=== PATIENT | male | born 1975 | race Hispanic/Latino ===

== ENCOUNTER 2019-03-31 13:43 | Observation (INO) ==
[2019-03-31] MEDS ORDERED: Sodium Chloride 0.9% 1,000 ML PRIMARY IV ONE (13:54)
--- NOTE | 2019-03-31 13:57 | EKG ---
[address] [place] [id number] Test Date: 2019-03-31 Pat Name: MONIKA FAY Department: ER Room: 316 Gender: M Supervisor Inspection: BERNARD : 1975 Requested By: GILBERT ROBIN Order Number: [id number] Reading MD: Luis Carlos Holm Measurements Intervals Marshall Rate: 72 P: 19 KS: 133 QRS: 21 QRSD: 112 T: 64 QT: 395 QTc: 434 Interpretive Statements SINUS RHYTHM MODERATE INTRAVENTRICULAR CONDUCTION DELAY No previous ECG available for comparison Electronically Signed On 03-31-2019 18:56:57 MDT by Luis Carlos Holm [id number]
[2019-03-31] MEDS: NITROGLYCERIN 0.4 MG SL TAB (BOTTLE OF 3) SL PRN ×2 (13:58→14:26)
[2019-03-31 14:01] LABS: BASOPHILS # (AUTO) 0.03 10*3/UL; BASOPHILS % (AUTO) 0.5 % (0-1); EOSINOPHILS # (AUTO) 0.03 10*3/UL; EOSINOPHILS % (AUTO) 0.5 % (0-8); Hematocrit [HCT] 43.7 % (42.0-52.0); Hemoglobin [HGB] 14.4 g/dL (14.0-18.0); LYMPHOCYTES # (AUTO) 1.02 10*3/uL; MEAN CORPUSCULAR VOLUME 90.9 FL (80-90); MEAN PLATELET VOLUME 10.8 FL (7.4-12.2); MONOCYTES # (AUTO) 0.38 10*3/UL (0.3-0.8); MONOCYTES % (AUTO) 6.6 % (5-15); NEUTROPHILS # (AUTO) 4.34 10*3/UL; NEUTROPHILS % (AUTO) 74.8 % (50-80); PLATELET MORPHOLOGY COMMENT NORMAL MORPHOLOGY (NORM); RBC MORPHOLOGY COMMENT NORMAL MORPHOLOGY (NORM); RED BLOOD COUNT 4.81 10^6/uL (4.70-6.10); WBC MORPHOLOGY COMMENT NORMAL MORPHOLOGY (NORM)
[2019-03-31 14:14] LABS: BLOOD UREA NITROGEN 15 mg/dL (7-22); BUN/CREATININE RATIO 16.66 (6-20); SERUM ALBUMIN 4.5 g/dL (3.5-4.8)
--- NOTE | 2019-03-31 14:28 | DI ---
XR CXR 1VW,03/31/2019 2:07 PM: Clinical History: Chest pain Previous Exam: None at this facility. Findings: A single frontal radiograph of the chest is obtained, and demonstrates clear lungs. The cardiomediast inum and bony thorax are unremarkable. Overlying EKG leads are seen. Impression: No acute cardiopulmonary disease.
--- NOTE | 2019-03-31 14:31 | PDOC ---
Chest Pain HPI - General Chief Complaint: Chest Pain Stated Complaint: chest pain Date Seen by Provider: 03/31/19 Time Seen by Provider: 13:45 Source: Patient Exam Limitations: POSITIVE: No limitations Treatment Prior to Arrival: REPORTS: Nitroglycerin (1 dose of sublingual nitroglycerin in route per EMS), Aspirin (325 mg administered per prison nurse) Nurse's Notes Reviewed & Considered: Yes EMS Report Reviewed & Considered: Verbal - History of Present Illness Initial Comments: The patient is a 43-year-old male who presents to the emergency department by ambulance with complaints of chest pain. The patient was apparently just arrested for domestic violence and was in the process of being checked in at the prison when he had onset of pain in his mid chest. The nurse at the prison did administer 325 mg of aspirin. When EMS arrived a 12-lead EKG showed no obvious ST elevation or depression. He was hypertensive initially with a blood pressure in the 190s over 110s. He received 1 dose of sublingual nitroglycerin in route. The patient states that he thinks this might have helped slightly however he still has continued pain. The pain is located primarily in the center of his chest and radiates down his left arm. The pain is worsened when he takes a deep breath and is sharp. He does not have any known history of heart disease. He has several grandparents with heart conditions. He does chew tobacco. He takes medication for high blood pressure as well as anxiety. He states that he is borderline diabetic. He reports that he has had anxiety and panic attacks in the past and states that his current pain is not like pain he has experienced from that in the past. He denies illicit drug use. He does admit to drinking several beers on most days, sometimes more. - Patient Home Medications Home Medications: Home Medications Metoprolol Succinate 50 mg PO DAILY 01/02/18 escitalopram 20 mg tablet 20 mg PO QDAY 01/15/18 lamotrigine 25 mg tablet 50 mg PO QDAY tab 01/15/18 Amlodipine Besylate [Norvasc] 10 mg PO DAILY #30 tab 03/31/19 Atorvastatin Calcium [Lipitor] 40 mg PO BEDTIME #30 tab 03/31/19 Lorazepam [Ativan] 0.5 mg PO BID PRN #10 tab 03/31/19 - Patient Allergies Allergies/Adverse Reactions: Allergies Allergy/AdvReac Type Severity Reaction Status Date / Time kiwi Allergy ITCHING Verified 03/31/19 13:51 nut - unspecified Allergy ITCHING Verified 03/31/19 13:51 ibuprofen AdvReac Nausea and Verified 03/31/19 15:21 Vomiting Past Medical History - heen HEENT History: Denies History Cardiovascular History: Hypertension Respiratory History: Denies History Gastrointestinal History: Denies History Genitourinary History: Denies History Endocrine History: Hypothyroidism Musculoskeletal History: Back Pain Prosthesis or Implant: No Neurological History: Denies History Blood Disorders: Denies History Psychiatric History: Depression, Anxiety Disorders History of Sexually Transmitted Diseases: No Cancer History: Denies History In Past Year Been Physically Harmed or Verbally Threatened: No History of MDRO: No History of Other Communicable Diseases: No Tobacco Use: Never Smoker Type of alcohol normally used: Beer In the Past 12 Months, Have Used or Abuse Any Substance: None Previous Surgical History: Yes Type / Date of Surgery: oral Significant Family History: No pertinent family hx Past Medical History Reviewed: Reviewed - No Changes ROS - Limitations ROS Limitations: No Limitations Constitution: DENIES: Fever Cardiovascular: REPORTS: Chest Pain, Edema (Report some intermittent edema in his ankles recently). DENIES: Heart Palpitations Respiratory: REPORTS: Hurts To Breathe. DENIES: Cough Non Productive Neurological: REPORTS: Denies Neuro Symptoms Gastrointestinal: REPORTS: Denies GI Symptoms Eyes: REPORTS: Denies Symptoms ENT: REPORTS: Denies Symptoms Chest Pain PE - General Appearance General Appearance: REPORTS: Alert, Cooperative, No Acute Distress, Anxious - HEENT HEENT: POSITIVE: Head Inspection Nml, Eyes Inspection Nml, Ears Inspection Nml, Nose Inspection Nml, Pharynx Inspect. Nml - Neck Neck: REPORTS: Normal Inspection. DENIES: JVD Present - Respiratory Respiratory: REPORTS: No Respiratory Distress, Breath Sounds Normal, Other (He does have tenderness to the left mid and upper chest) - Cardiovascular Cardiovascular: REPORTS: Regular Rate and Rhythm, Heart Sounds Normal Peripheral Pulses: Radial (R): 2+, Radial (L): 2+, Dorsalis-pedis (R): 2+, Dorsalis-pedis (L): 2+ - Abdomen Abdomen: Soft: (All Quadrants), Denies Tenderness: (All Quadrants), No Distent ion: (All Quadrants) - Skin Skin: REPORTS: Intact, No Rash - Extremities Extremity: Normal ROM: (All Extremities), Normal Inspection: (All Extremities) - Neurological / Psychological Neurological: POSITIVE: Oriented X3, financial administrator Normal As Tested, Motor Normal, Sensation Normal Chest Pain Progress - Results Reviewed by me Xrays/CTs/US Reviewed by me: Yes Radiology Findings: Chest x-ray shows normal heart size and normal lung elmore. Lab Results Reviewed by Me: Yes CBC and BMP: 03/31/19 13:36 03/31/19 13:36 Lab Results:: Laboratory Results 03/31/19 03/31/19 03/31/19 13:36 13:36 13:36 WBC 5.80 RBC 4.81 Hgb 14.4 Hct 43.7 MCV 90.9 H MCH 29.9 MCHC 33.0 RDW Std Deviation 47.6 RDW Coeff of Arabella 14.5 Plt Count 219 MPV 10.8 Immature Gran % (Auto) 0 Neut % (Auto) 74.8 Lymph % (Auto) 17.6 Hart % (Auto) 6.6 Eos % (Auto) 0.5 Baso % (Auto) 0.5 Immature Gran # (Auto) 0 Neut # (Auto) 4.34 Lymph # (Auto) 1.02 Hart # (Auto) 0.38 Eos # (Auto) 0.03 Baso # (Auto) 0.03 WBC Morphology Comment Normal morphology Plt Morphology Comment Normal morphology RBC Morph Comment Normal morphology D-Dimer 219 Sodium 147 H Potassium 3.8 Chloride 111 Carbon Dioxide 23 Anion Gap 13 BUN 15 Creatinine 0.9 Estimated GFR > 60 BUN/Creatinine Ratio 16.66 Glucose 108 Calculated Osmolality 305.0 H Calcium 9.7 Magnesium 2.0 Total Bilirubin 0.3 AST 30 ALT 40 Alkaline Phosphatase 81 CK-MB (CK-2) Troponin I Handheld Troponin I C-Reactive Protein < 0.5 NT-Pro-B Natriuret Pep 54.2 Total Protein 7.5 Albumin 4.5 Globulin 3.0 Albumin/Globulin Ratio 1.50 Triglycerides Cholesterol LDL Cholesterol, Calc VLDL Cholesterol HDL Cholesterol Cholesterol/HDL Ratio Amylase 73 Lipase 60 TSH Free T4 Ur Collection Type U Specif Grav (Refrac) Urine Opiates Screen Ur Buprenorphine Ur Oxycodone Screen Urine Methadone Screen Ur Propoxyphene Screen Barbiturate Screen U Tricyclic Antidepress Phencyclidine Screen Amphetamines Screen U Methamphetamines Scrn Benzodiazepines Screen Cocaine Screen U Marijuana (THC) Screen Serum Alcohol 03/31/19 03/31/19 03/31/19 13:36 13:36 13:37 WBC RBC Hgb Hct MCV MCH MCHC RDW Std Deviation RDW Coeff of Arabella Plt Count MPV Immature Gran % (Auto) Neut % (Auto) Lymph % (Auto) Hart % (Auto) Eos % (Auto) Baso % (Auto) Immature Gran # (Auto) Neut # (Auto) Lymph # (Auto) Hart # (Auto) Eos # (Auto) Baso # (Auto) WBC Morphology Comment Plt Morphology Comment RBC Morph Comment D-Dimer Sodium Potassium Chloride Carbon Dioxide Anion Gap BUN Creatinine Estimated GFR BUN/Creatinine Ratio Glucose Calculated Osmolality Calcium Magnesium Total Bilirubin AST ALT Alkaline Phosphatase CK-MB (CK-2) 0.41 Troponin I Handheld Troponin I < 0.012 C-Reactive Protein NT-Pro-B Natriuret Pep Total Protein Albumin Globulin Albumin/Globulin Ratio Triglycerides 402 H Cholesterol 278 H LDL Cholesterol, Calc 151.600 VLDL Cholesterol 80 H HDL Cholesterol 46 Cholesterol/HDL Ratio 6.04 H Amylase Lipase TSH Free T4 Ur Collection Type U Specif Grav (Refrac) Urine Opiates Screen Ur Buprenorphine Ur Oxycodone Screen Urine Methadone Screen Ur Propoxyphene Screen Barbiturate Screen U Tricyclic Antidepress Phencyclidine Screen Amphetamines Screen U Methamphetamines Scrn Benzodiazepines Screen Cocaine Screen U Marijuana (THC) Screen Serum Alcohol 03/31/19 03/31/19 03/31/19 13:37 13:55 14:30 WBC RBC Hgb Hct MCV MCH MCHC RDW Std Deviation RDW Coeff of Arabella Plt Count MPV Immature Gran % (Auto) Neut % (Auto) Lymph % (Auto) Hart % (Auto) Eos % (Auto) Baso % (Auto) Immature Gran # (Auto) Neut # (Auto) Lymph # (Auto) Hart # (Auto) Eos # (Auto) Baso # (Auto) WBC Morphology Comment Plt Morphology Comment RBC Morph Comment D-Dimer Sodium Potassium Chloride Carbon Dioxide Anion Gap BUN Creatinine Estimated GFR BUN/Creatinine Ratio Glucose Calculated Osmolality Calcium Magnesium Total Bilirubin AST ALT Alkaline Phosphatase CK-MB (CK-2) Troponin I Handheld Troponin I C-Reactive Protein NT-Pro-B Natriuret Pep Total Protein Albumin Globulin Albumin/Globulin Ratio Triglycerides Cholesterol LDL Cholesterol, Calc VLDL Cholesterol HDL Cholesterol Cholesterol/HDL Ratio Amylase Lipase TSH 2.69 Free T4 1.02 Ur Collection Type Clean catch urine U Specif Grav (Refrac) 1.023 Urine Opiates Screen Negative Ur Buprenorphine Positive H Ur Oxycodone Screen Negative Urine Methadone Screen Negative Ur Propoxyphene Screen Negative Barbiturate Screen Negative U Tricyclic Antidepress Negative Phencyclidine Screen Negative Amphetamines Screen Negative U Methamphetamines Scrn Negative Benzodiazepines Screen Negative Cocaine Screen Negative U Marijuana (THC) Screen Positive H Serum Alcohol < 10 03/31/19 15:53 WBC RBC Hgb Hct MCV MCH MCHC RDW Std Deviation RDW Coeff of Arabella Plt Count MPV Immature Gran % (Auto) Neut % (Auto) Lymph % (Auto) Hart % (Auto) Eos % (Auto) Baso % (Auto) Immature Gran # (Auto) Neut # (Auto) Lymph # (Auto) Hart # (Auto) Eos # (Auto) Baso # (Auto) WBC Morphology Comment Plt Morphology Comment RBC Morph Comment D-Dimer Sodium Potassium Chloride Carbon Dioxide Anion Gap BUN Creatinine Estimated GFR BUN/Creatinine Ratio Glucose Calculated Osmolality Calcium Magnesium Total Bilirubin AST ALT Alkaline Phosphatase CK-MB (CK-2) Troponin I Handheld 0.000 Troponin I C-Reactive Protein NT-Pro-B Natriuret Pep Total Protein Albumin Globulin Albumin/Globulin Ratio Triglycerides Cholesterol LDL Cholesterol, Calc VLDL Cholesterol HDL Cholesterol Cholesterol/HDL Ratio Amylase Lipase TSH Free T4 Ur Collection Type U Specif Grav (Refrac) Urine Opiates Screen Ur Buprenorphine Ur Oxycodone Screen Urine Methadone Screen Ur Propoxyphene Screen Barbiturate Screen U Tricyclic Antidepress Phencyclidine Screen Amphetamines Screen U Methamphetamines Scrn Benzodiazepines Screen Cocaine Screen U Marijuana (THC) Screen Serum Alcohol EKG Interpreted/Reviewed By Me:: Yes EKG Interpretation:: POSITIVE: Normal Sinus Rhythm, Normal Rate, Normal QRS, Normal ST/T - Patient's Progress MDM / ED Course: On arrival here in the emergency department the patient still reports severe chest pain. His EKG shows normal sinus rhythm with no acute ST segment or T- wave changes. He does have pain with palpation as well as with taking a deep breath. He had already received aspirin and one dose of nitroglycerin prior to coming to the emergency department. His vital signs were unremarkable with the exception of his blood pressure still being elevated at 177/114. He did receive 2 more doses of sublingual nitroglycerin. His pressure did come down. Initial blood work reveals a normal d-dimer, normal troponin. His chest x-ray shows normal heart size and normal lung elmore. Repeat troponin was also negative. The patient was having continued pain. His blood pressure also continued to be elevated. He did receive Ativan 1 mg IV. His blood pressure did come down into the 150s over 90s. The patient is discussed with Dr. Hanna. Decision was made to admit the patient for exercise stress testing and CTA of the chest for further evaluation. These recommendations were discussed with the patient and he is in agreement with this plan. - Consult Counseled: POSITIVE: Patient, RE: Lab Results, RE: Radiology Results, RE: DX, RE: Need for F/U Patient Care Time - Estimated PCT Patient Care Time (In Minutes): 45 Vital Signs - VS Reviewed Vital Signs Reviewed: Yes Discharge Clinical Impression: Chest pain Hypertension Qualifiers: Hypertension type: essential hypertension Qualified Code(s): I10 - Essential (primary) hypertension Discharge Disposition: Admit to Observation Condition: Fair Patient Problem(s) Reviewed: Yes
[2019-03-31] MEDS ORDERED: KETOROLAC 15 MG/1 ML VIAL IVP ONE (14:35)
[2019-03-31] MEDS ORDERED: LORazepam 2 MG/1 ML VIAL IVP ONE (15:58)
[2019-03-31 17:10] LABS: AMPHETAMINE SCREEN NEGATIVE (NEG); OPIATE SCREEN,URINE NEGATIVE (NEG); URINE SAMPLE TYPE CLEAN CATCH URINE; URINE SPECIFIC GRAVITY - MAN 1.023
[2019-03-31 17:11] LABS: CANNABINOID SCREEN,URINE POSITIVE (NEG); COCAINE SCREEN NEGATIVE (NEG); METHADONE URINE SCREEN NEGATIVE (NEG); METHAMPHETAMINES SCREEN,URINE NEGATIVE (NEG)
--- NOTE | 2019-03-31 17:44 | DI ---
CT CTA Chest Non-Coronary O,03/31/2019 5:00 PM: Clinical History: Chest pain Previous Exam: None at this facility. Findings: Multiple helically acquired CT images are obtained through the chest following intravenous administra tion of 69 mL of Omnipaque 300, and demonstrate normal thyroid. The aorta is unremarkable. Pulmonary arteries are normal without filling defect or truncation to sugg est pulmonary embolism. There is mild subsegmental atelectasis in the lung bases. The liver, gallbladder, spleen, pancreas and adrenals are unremarkable. There is no infiltrate nor effusion. Skeletal structures are unremarkable. Impression: 1. No evidence of pulmonary embolism. 2. No acute cardiopulmonary disease.
[2019-03-31 17:48] LABS: CHOL/HDL RATIO 6.04 RATIO (0-4.0)
--- NOTE | 2019-03-31 18:10 | STRESSTEST ---
[place] [address] [place] [address] Test Date: 2019-03-31 Pat Name: MONIKA FAY Department: MED/SURG Room: 316 Gender: Male Clinical Cytogenetics Director: Luis : 1975 Requested By: MAYA PEREZ Order Number: [id number] Reading MD: Cyndi Interpretive Statements This is a 43 YO male that presented to the emergency room after being arrested earlier today with sudden onset chest pain and radiation into left arm. Has panic attacks, grandparents with history of heart disease, chews tobacco, HTN, pre-diabetes, and he thinks he has high cholesterol. resting EKG is NSR. Exercised in Ernie protocol to time of 10:!4, reached 89% predicted heart rate. 11 METs. Hypertensive response to exercise. No ischemic findings. Impression: negative maximal stress test with double product 28,080. hypertensive response to exercise. lower pretest probability. [email or web address]
[2019-03-31 18:14] VITALS: RESP 20; O2SAT 95
--- NOTE | 2019-03-31 18:23 | PDOC ---
HPI - History of Present Illness Date of Service: 03/31/19 Time of Service: 18:16 Chief Complaint: chest pain History of Present Illness: This is a 43 YO male with bipolar disorder II, hypertension, and chronic back pain who presents here with chest pain after being arrested. The patient states he got into his jump suit after being arrested from something and the chest pain started on the left side, and he described it as sharp. He felt short of breath. The pain radiated to his arm. He was hypertensive in the ER, and tells me that his SBP measures 130's-150's at the grocery store when he checks it there on occasion. He states he has had panic attacks in the past but he notes this episode doesn't feel like prior panic attacks as they were not associated with chest pain. The patient had a negative troponin in the ER. He has hype rtension, no primary family history of heart disease (grandparents had heart attacks, apparently), he states he was pre-diabetic (normal glucose in ER), he thinks he has high cholesterol but doesn't know for sure, and he chews tobacco. His drug screen was positive for marijuana. No other exacerbating factors. Past Medical History Medical History: 1. HTN. 2. bipolar, type II. 3. chronic back pain. 4. marijuana use. 5. alcohol use Surgical History: 1. wisdom teeth extraction Pertinent Family History: states his grandparents had heart attacks Past Social History: chews tobacco, drinks alcohol daily, smokes marijuana, has fiancee, two healthy children, works in [employer] [place]. arrested today. Tobacco Use: Never Smoker Do you dip or chew tobacco: Yes In the Past 12 Months, Have Used or Abuse Any of the Following Substance: Marijuana, Opiate Pain Medication (buprenorphine) Alcohol Use: Heavy Medication / Allergies Home Medications: Home Medications Medication Instructions Recorded Confirmed Acetaminophen [Tylenol] 1,500 mg PO PRN 01/02/18 03/31/19 Metoprolol Succinate 50 mg PO DAILY 01/02/18 03/31/19 buprenorphine HCl 2 mg sublingual 2 mg SL ONCE 01/15/18 03/31/19 tablet escitalopram 20 mg tablet 20 mg PO QDAY 01/15/18 03/31/19 lamotrigine 25 mg tablet 50 mg PO QDAY tab 01/15/18 03/31/19 Allergies/Adverse Reactions: Allergies Allergy/AdvReac Type Severity Reaction Status Date / Time kiwi Allergy ITCHING Verified 03/31/19 13:51 nut - unspecified Allergy ITCHING Verified 03/31/19 13:51 ibuprofen AdvReac Nausea and Verified 03/31/19 15:21 Vomiting Review of Systems - Respiratory Respiratory: REPORTS: Negative System Review - Cardiovascular Cardiovascular: REPORTS: Chest Pain - Gastrointestinal Gastrointestinal / Abdominal: REPORTS: Nausea - Genitourinary Genitourinary: REPORTS: Negative System Review - Musculoskeletal Musculoskeletal: REPORTS: Other (non specific joint pains.) - Neurological Neurologic: REPORTS: Negative System Review - Psychiatric Psychiatric: REPORTS: Other (bipolar) Exam - Vitals Vital Signs: Vital Signs Temperature 98.3 F Temperature Source Oral Pulse Rate [Pulse Oximeter 79 Right] Pulse Rate 78 Respiratory Rate 20 Blood Pressure [Right Arm] 173/114 Blood Pressure [Left Arm] 177/114 Blood Pressure 185/101 Pulse Ox 95 Oxygen Delivery Method Room Air Height 5 ft 8 in Weight 209 lb - General General Appearance: No Acute Distress, Cooperative - Head Head Exam: Normal Inspection, Normocephalic, Atraumatic - Eye Eye Exam: POSITIVE: No Scleral Icterus - ENT ENT Exam: POSITIVE: Mucous Membranes Moist - Neck Neck Exam: Normal Inspection, No Tenderness, No Lymphadenopathy, No Thyromegaly, JVP is not Raised - Respiratory Respiratory Exam: POSITIVE: Clear to Auscultation - Bilaterally, Breathing Non Labored - Cardiovascular Cardiovascular Exam: POSITIVE: RRR, No Murmur, No Clicks, No Gallops, No Rubs, No JVD - GI/Abdominal GI/Abdominal Exam: POSITIVE: Normal Bowel Sounds, Non Tender, Non Distended, Soft - Rectal Rectal Exam: POSITIVE: Deferred - External Exam: POSITIVE: Deferred Exam: POSITIVE: Deferred - Extremities Extremities Exam: POSITIVE: No Clubbing Present, No Edema Present, No Cyanosis Present - Neurological Neurological Exam: POSITIVE: Alert, Oriented x 3, No Facial Droop, Speech Intact / Clear, Moves All Extremities Equally - Psychiatric Psychiatric Exam: POSITIVE: Anxious Results - Labs CBC and BMP: 03/31/19 13:36 03/31/19 13:36 Additional Lab Results: Laboratory Results 03/31/19 03/31/19 03/31/19 13:36 13:36 13:36 WBC 5.80 RBC 4.81 Hgb 14.4 Hct 43.7 MCV 90.9 H MCH 29.9 MCHC 33.0 RDW Std Deviation 47.6 RDW Coeff of Arabella 14.5 Plt Count 219 MPV 10.8 Immature Gran % (Auto) 0 Neut % (Auto) 74.8 Lymph % (Auto) 17.6 [place] % (Auto) 6.6 Eos % (Auto) 0.5 Baso % (Auto) 0.5 Immature Gran # (Auto) 0 Neut # (Auto) 4.34 Lymph # (Auto) 1.02 [place] # (Auto) 0.38 Eos # (Auto) 0.03 Baso # (Auto) 0.03 WBC Morphology Comment Normal morphology Plt Morphology Comment Normal morphology RBC Morph Comment Normal morphology D-Dimer 219 Sodium 147 H Potassium 3.8 Chloride 111 Carbon Dioxide 23 Anion Gap 13 BUN 15 Creatinine 0.9 Estimated GFR > 60 BUN/Creatinine Ratio 16.66 Glucose 108 Calculated Osmolality 305.0 H Calcium 9.7 Magnesium 2.0 Total Bilirubin 0.3 AST 30 ALT 40 Alkaline Phosphatase 81 CK-MB (CK-2) Troponin I Handheld Troponin I C-Reactive Protein < 0.5 NT-Pro-B Natriuret Pep 54.2 Total Protein 7.5 Albumin 4.5 Globulin 3.0 Albumin/Globulin Ratio 1.50 Triglycerides Cholesterol LDL Cholesterol, Calc VLDL Cholesterol HDL Cholesterol Cholesterol/HDL Ratio Amylase 73 Lipase 60 TSH Free T4 Ur Collection Type U Specif Grav (Refrac) Urine Opiates Screen Ur Buprenorphine Ur Oxycodone Screen Urine Methadone Screen Ur Propoxyphene Screen Barbiturate Screen U Tricyclic Antidepress Phencyclidine Screen Amphetamines Screen U Methamphetamines Scrn Benzodiazepines Screen Cocaine Screen U Marijuana (THC) Screen Serum Alcohol 03/31/19 03/31/19 03/31/19 13:36 13:36 13:37 WBC RBC Hgb Hct MCV MCH MCHC RDW Std Deviation RDW Coeff of Arabella Plt Count MPV Immature Gran % (Auto) Neut % (Auto) Lymph % (Auto) [place] % (Auto) Eos % (Auto) Baso % (Auto) Immature Gran # (Auto) Neut # (Auto) Lymph # (Auto) [place] # (Auto) Eos # (Auto) Baso # (Auto) WBC Morphology Comment Plt Morphology Comment RBC Morph Comment D-Dimer Sodium Potassium Chloride Carbon Dioxide Anion Gap BUN Creatinine Estimated GFR BUN/Creatinine Ratio Glucose Calculated Osmolality Calcium Magnesium Total Bilirubin AST ALT Alkaline Phosphatase CK-MB (CK-2) 0.41 Troponin I Handheld Troponin I < 0.012 C-Reactive Protein NT-Pro-B Natriuret Pep Total Protein Albumin Globulin Albumin/Globulin Ratio Triglycerides 402 H Cholesterol 278 H LDL Cholesterol, Calc 151.600 VLDL Cholesterol 80 H HDL Cholesterol 46 Cholesterol/HDL Ratio 6.04 H Amylase Lipase TSH Free T4 Ur Collection Type U Specif Grav (Refrac) Urine Opiates Screen Ur Buprenorphine Ur Oxycodone Screen Urine Methadone Screen Ur Propoxyphene Screen Barbiturate Screen U Tricyclic Antidepress Phencyclidine Screen Amphetamines Screen U Methamphetamines Scrn Benzodiazepines Screen Cocaine Screen U Marijuana (THC) Screen Serum Alcohol 03/31/19 03/31/19 03/31/19 13:37 13:55 14:30 WBC RBC Hgb Hct MCV MCH MCHC RDW Std Deviation RDW Coeff of Arabella Plt Count MPV Immature Gran % (Auto) Neut % (Auto) Lymph % (Auto) [place] % (Auto) Eos % (Auto) Baso % (Auto) Immature Gran # (Auto) Neut # (Auto) Lymph # (Auto) [place] # (Auto) Eos # (Auto) Baso # (Auto) WBC Morphology Comment Plt Morphology Comment RBC Morph Comment D-Dimer Sodium Potassium Chloride Carbon Dioxide Anion Gap BUN Creatinine Estimated GFR BUN/Creatinine Ratio Glucose Calculated Osmolality Calcium Magnesium Total Bilirubin AST ALT Alkaline Phosphatase CK-MB (CK-2) Troponin I Handheld Troponin I C-Reactive Protein NT-Pro-B Natriuret Pep Total Protein Albumin Globulin Albumin/Globulin Ratio Triglycerides Cholesterol LDL Cholesterol, Calc VLDL Cholesterol HDL Cholesterol Cholesterol/HDL Ratio Amylase Lipase TSH 2.69 Free T4 1.02 Ur Collection Type Clean catch urine U Specif Grav (Refrac) 1.023 Urine Opiates Screen Negative Ur Buprenorphine Positive H Ur Oxycodone Screen Negative Urine Methadone Screen Negative Ur Propoxyphene Screen Negative Barbiturate Screen Negative U Tricyclic Antidepress Negative Phencyclidine Screen Negative Amphetamines Screen Negative U Methamphetamines Scrn Negative Benzodiazepines Screen Negative Cocaine Screen Negative U Marijuana (THC) Screen Positive H Serum Alcohol < 10 03/31/19 15:53 WBC RBC Hgb Hct MCV MCH MCHC RDW Std Deviation RDW Coeff of Arabella Plt Count MPV Immature Gran % (Auto) Neut % (Auto) Lymph % (Auto) [place] % (Auto) Eos % (Auto) Baso % (Auto) Immature Gran # (Auto) Neut # (Auto) Lymph # (Auto) [place] # (Auto) Eos # (Auto) Baso # (Auto) WBC Morphology Comment Plt Morphology Comment RBC Morph Comment D-Dimer Sodium Potassium Chloride Carbon Dioxide Anion Gap BUN Creatinine Estimated GFR BUN/Creatinine Ratio Glucose Calculated Osmolality Calcium Magnesium Total Bilirubin AST ALT Alkaline Phosphatase CK-MB (CK-2) Troponin I Handheld 0.000 Troponin I C-Reactive Protein NT-Pro-B Natriuret Pep Total Protein Albumin Globulin Albumin/Globulin Ratio Triglycerides Cholesterol LDL Cholesterol, Calc VLDL Cholesterol HDL Cholesterol Cholesterol/HDL Ratio Amylase Lipase TSH Free T4 Ur Collection Type U Specif Grav (Refrac) Urine Opiates Screen Ur Buprenorphine Ur Oxycodone Screen Urine Methadone Screen Ur Propoxyphene Screen Barbiturate Screen U Tricyclic Antidepress Phencyclidine Screen Amphetamines Screen U Methamphetamines Scrn Benzodiazepines Screen Cocaine Screen U Marijuana (THC) Screen Serum Alcohol - EKG Data -: EKG Interpreted by Me Rate: Normal EKG Shows Normal: Sinus Rhythm - Imaging Status: Image Reviewed by Me (chest x-ray on my view is negative, CT scan is negative for pneumonia, radiologist read as negative for PE) Assessment and Plan - Patient Problems (1) Chest pain Current Visit: Yes Status: Acute Code(s): R07.9 - Chest pain, unspecified (2) Panic attack Current Visit: Yes Status: Acute Code(s): F41.0 - Panic disorder [episodic paroxysmal anxiety] (3) Marijuana abuse Current Visit: Yes Status: Acute Code(s): F12.10 - Cannabis abuse, uncomplicated (4) Alcohol use Current Visit: Yes Status: Acute Code(s): Z72.89 - Other problems related to lifestyle (5) Hypertension Current Visit: Yes Status: Acute Code(s): I10 - Essential (primary) hypertension Qualifiers: Hypertension type: essential hypertension Qualified Code(s): I10 - Essential (primary) hypertension (6) Chronic back pain Current Visit: Yes Status: Acute Code(s): M54.9 - Dorsalgia, unspecified; G89.29 - Other chronic pain Qualifiers: Back pain location: low back pain Back pain laterality: unspecified Sciatica presence: unspecified whether sciatica present Qualified Code(s): M54.5 - Low back pain; G89.29 - Other chronic pain - Assessment / Plan Additional Assessment/Plan Details: admit for observation arrange for exercise treadmill stress test for risk stratification check thyroid function, and cholesterol function clonidine for elevated BP and start norvasc if stress test is negative, then consider discharge overall, most suspicious of a panic attack
[2019-03-31] MEDS ORDERED: CloNIDine Tab 0.1 MG TABLET PO ONE (18:24)
[2019-03-31] MEDS ORDERED: lamoTRIgine 100 MG TABLET PO SCH (18:30)
[2019-03-31] MEDS ORDERED: ESCITALOPRAM 10 MG TABLET PO SCH (18:30)
[2019-03-31] MEDS ORDERED: ATORVASTATIN 40 MG TABLET PO ONE (18:54)
--- NOTE | 2019-03-31 20:15 | DCSUMMARY ---
Hospitalization Summary Admit Date: 03/31/2019 Discharge Date: 03/31/19 Primary Diagnosis:: chest pain, secondary to panic attack Hospital Course: This is a pleasant 43-year-old male who was arrested earlier today. See history and physical exam dictated earlier for details, in short, patient had 2 negative cardiac enzymes, a treadmill stress test that was a negative maximal stress test with hypertensive response, he was found to have high cholesterol. His blood pr essures under better control now with a systolic around 169 which represents a 10-20% reduction from blood pressures in the emergency room and I believe the patient can resume outpatient monitoring with additional blood pressure medications. Have written for Norvasc in addition to his metoprolol that he takes at home. The patient had a negative CT scan for pulmonary embolism. He is on a mood stabilizer as well as an antidepressant for his bipolar disorder. For his panic attacks, I'll also write for when necessary Ativan. Hopefully any adjustments made in antidepressants per his psychiatrist may help with anxiety as well. This is not a long-term solution for his panic attacks. I have asked that the patient's buprenorphine does be confirmed tomorrow with [facility] as it is not prescribed by anybody here. The patient currently is not in any distress. He has no active complaints. Assessment and Plan: 1. As per discharge assessments noted 2. Disposition: Patient is discharged to the custody of law enforcement 3. Condition on discharge, stable and improved. 4. Diet: regular diet, although I did recommend low-fat and low-cholesterol 5. Activities: As per law enforcement 6. Follow-Up: 1. I recommend follow-up with primary care physician or provider within 7- 10 days of discharge 7. Medications at the Time of Discharge: Home Medications Medication Instructions Recorded Confirmed Metoprolol Succinate 50 mg PO DAILY 01/02/18 03/31/19 escitalopram 20 mg tablet 20 mg PO QDAY 01/15/18 03/31/19 lamotrigine 25 mg tablet 50 mg PO QDAY tab 01/15/18 03/31/19 Amlodipine Besylate [Norvasc] 10 mg PO DAILY #30 tab 03/31/19 Atorvastatin Calcium [Lipitor] 40 mg PO BEDTIME #30 tab 03/31/19 Lorazepam [Ativan] 0.5 mg PO BID PRN #10 tab 09/11/19 The patient is on buprenorphine and I would recommend that that dose be confirmed tomorrow and in addition we have records that show the patient is on Lexapro, but he could possibly be on Celexa and that should be confirmed as well. Same day admission and discharge This report was transcribed using [employer] voice recognition. Despite editing, there may be grammatical and/or typographical errors in this spinner open end report due to the limitations inherent with voice activated and speech recognition software. Exam - Vitals Vital Signs: Vital Signs Vital Signs - Last Taken Temperature 98.3 F 03/31/19 18:11 Pulse Rate 79 03/31/19 18:11 Respiratory Rate 20 03/31/19 18:11 Blood Pressure 173/114 03/31/19 18:11 Pulse Ox 95 03/31/19 18:11 I confirmed with the patient's nurse and nurse acting as a [employer] tonight that his last systolic blood pressure was 169. Height 5 ft 8 in Weight 209 lb Please see history and physical exam for details of further examination. - General General Appearance: No Acute Distress, Cooperative - Head Head Exam: Normal Inspection, Normocephalic, Atraumatic - Eye Eye Exam: POSITIVE: No Scleral Icterus - ENT ENT Exam: POSITIVE: Mucous Membranes Moist - Neck Neck Exam: JVP is not Raised - Neurological Neurological Exam: POSITIVE: Alert, Oriented x 3, No Facial Droop, Speech Intact / Clear, Moves All Extremities Equally - Psychiatric Additional Psychiatric Exam Details: Patient is less anxious than he was earlier today. Data Peritnent Studies: Laboratory Results 03/31/19 03/31/19 03/31/19 13:36 13:36 13:36 WBC 5.80 RBC 4.81 Hgb 14.4 Hct 43.7 MCV 90.9 H MCH 29.9 MCHC 33.0 RDW Std Deviation 47.6 RDW Coeff of Arabella 14.5 Plt Count 219 MPV 10.8 Immature Gran % (Auto) 0 Neut % (Auto) 74.8 Lymph % (Auto) 17.6 [place] % (Auto) 6.6 Eos % (Auto) 0.5 Baso % (Auto) 0.5 Immature Gran # (Auto) 0 Neut # (Auto) 4.34 Lymph # (Auto) 1.02 [place] # (Auto) 0.38 Eos # (Auto) 0.03 Baso # (Auto) 0.03 WBC Morphology Comment Normal morphology Plt Morphology Comment Normal morphology RBC Morph Comment Normal morphology D-Dimer 219 Sodium 147 H Potassium 3.8 Chloride 111 Carbon Dioxide 23 Anion Gap 13 BUN 15 Creatinine 0.9 Estimated GFR > 60 BUN/Creatinine Ratio 16.66 Glucose 108 Calculated Osmolality 305.0 H Calcium 9.7 Magnesium 2.0 Total Bilirubin 0.3 AST 30 ALT 40 Alkaline Phosphatase 81 CK-MB (CK-2) Troponin I Handheld Troponin I C-Reactive Protein < 0.5 NT-Pro-B Natriuret Pep 54.2 Total Protein 7.5 Albumin 4.5 Globulin 3.0 Albumin/Globulin Ratio 1.50 Triglycerides Cholesterol LDL Cholesterol, Calc VLDL Cholesterol HDL Cholesterol Cholesterol/HDL Ratio Amylase 73 Lipase 60 TSH Free T4 Ur Collection Type U Specif Grav (Refrac) Urine Opiates Screen Ur Buprenorphine Ur Oxycodone Screen Urine Methadone Screen Ur Propoxyphene Screen Barbiturate Screen U Tricyclic Antidepress Phencyclidine Screen Amphetamines Screen U Methamphetamines Scrn Benzodiazepines Screen Cocaine Screen U Marijuana (THC) Screen Serum Alcohol 03/31/19 03/31/19 03/31/19 13:36 13:36 13:37 WBC RBC Hgb Hct MCV MCH MCHC RDW Std Deviation RDW Coeff of Arabella Plt Count MPV Immature Gran % (Auto) Neut % (Auto) Lymph % (Auto) [place] % (Auto) Eos % (Auto) Baso % (Auto) Immature Gran # (Auto) Neut # (Auto) Lymph # (Auto) [place] # (Auto) Eos # (Auto) Baso # (Auto) WBC Morphology Comment Plt Morphology Comment RBC Morph Comment D-Dimer Sodium Potassium Chloride Carbon Dioxide Anion Gap BUN Creatinine Estimated GFR BUN/Creatinine Ratio Glucose Calculated Osmolality Calcium Magnesium Total Bilirubin AST ALT Alkaline Phosphatase CK-MB (CK-2) 0.41 Troponin I Handheld Troponin I < 0.012 C-Reactive Protein NT-Pro-B Natriuret Pep Total Protein Albumin Globulin Albumin/Globulin Ratio Triglycerides 402 H Cholesterol 278 H LDL Cholesterol, Calc 151.600 VLDL Cholesterol 80 H HDL Cholesterol 46 Cholesterol/HDL Ratio 6.04 H Amylase Lipase TSH Free T4 Ur Collection Type U Specif Grav (Refrac) Urine Opiates Screen Ur Buprenorphine Ur Oxycodone Screen Urine Methadone Screen Ur Propoxyphene Screen Barbiturate Screen U Tricyclic Antidepress Phencyclidine Screen Amphetamines Screen U Methamphetamines Scrn Benzodiazepines Screen Cocaine Screen U Marijuana (THC) Screen Serum Alcohol 03/31/19 03/31/19 03/31/19 13:37 13:55 14:30 WBC RBC Hgb Hct MCV MCH MCHC RDW Std Deviation RDW Coeff of Arabella Plt Count MPV Immature Gran % (Auto) Neut % (Auto) Lymph % (Auto) [place] % (Auto) Eos % (Auto) Baso % (Auto) Immature Gran # (Auto) Neut # (Auto) Lymph # (Auto) [place] # (Auto) Eos # (Auto) Baso # (Auto) WBC Morphology Comment Plt Morphology Comment RBC Morph Comment D-Dimer Sodium Potassium Chloride Carbon Dioxide Anion Gap BUN Creatinine Estimated GFR BUN/Creatinine Ratio Glucose Calculated Osmolality Calcium Magnesium Total Bilirubin AST ALT Alkaline Phosphatase CK-MB (CK-2) Troponin I Handheld Troponin I C-Reactive Protein NT-Pro-B Natriuret Pep Total Protein Albumin Globulin Albumin/Globulin Ratio Triglycerides Cholesterol LDL Cholesterol, Calc VLDL Cholesterol HDL Cholesterol Cholesterol/HDL Ratio Amylase Lipase TSH 2.69 Free T4 1.02 Ur Collection Type Clean catch urine U Specif Grav (Refrac) 1.023 Urine Opiates Screen Negative Ur Buprenorphine Positive H Ur Oxycodone Screen Negative Urine Methadone Screen Negative Ur Propoxyphene Screen Negative Barbiturate Screen Negative U Tricyclic Antidepress Negative Phencyclidine Screen Negative Amphetamines Screen Negative U Methamphetamines Scrn Negative Benzodiazepines Screen Negative Cocaine Screen Negative U Marijuana (THC) Screen Positive H Serum Alcohol < 10 03/31/19 03/31/19 15:53 18:35 WBC RBC Hgb Hct MCV MCH MCHC RDW Std Deviation RDW Coeff of Arabella Plt Count MPV Immature Gran % (Auto) Neut % (Auto) Lymph % (Auto) [place] % (Auto) Eos % (Auto) Baso % (Auto) Immature Gran # (Auto) Neut # (Auto) Lymph # (Auto) [place] # (Auto) Eos # (Auto) Baso # (Auto) WBC Morphology Comment Plt Morphology Comment RBC Morph Comment D-Dimer Sodium Potassium Chloride Carbon Dioxide Anion Gap BUN Creatinine Estimated GFR BUN/Creatinine Ratio Glucose Calculated Osmolality Calcium Magnesium Total Bilirubin AST ALT Alkaline Phosphatase CK-MB (CK-2) Troponin I Handheld 0.000 Troponin I < 0.012 C-Reactive Protein NT-Pro-B Natriuret Pep Total Protein Albumin Globulin Albumin/Globulin Ratio Triglycerides Cholesterol LDL Cholesterol, Calc VLDL Cholesterol HDL Cholesterol Cholesterol/HDL Ratio Amylase Lipase TSH Free T4 Ur Collection Type U Specif Grav (Refrac) Urine Opiates Screen Ur Buprenorphine Ur Oxycodone Screen Urine Methadone Screen Ur Propoxyphene Screen Barbiturate Screen U Tricyclic Antidepress Phencyclidine Screen Amphetamines Screen U Methamphetamines Scrn Benzodiazepines Screen Cocaine Screen U Marijuana (THC) Screen Serum Alcohol The patient had a negative maximal Ernie protocol exercise stress test with hypertensive response to exercise with normal oxygen saturations of 94 and 98% during the procedure. Patient Problems - Patient Problem List (1) Panic attack Current Visit: Yes Status: Acute Code(s): F41.0 - Panic disorder [episodic paroxysmal anxiety] Category: Medical (2) Chest pain Current Visit: Yes Status: Resolved Code(s): R07.9 - Chest pain, unspecified Category: Medical (3) Marijuana abuse Current Visit: Yes Status: Acute Code(s): F12.10 - Cannabis abuse, uncomplicated Category: Medical (4) Hypertension Current Visit: Yes Status: Acute Code(s): I10 - Essential (primary) hypertension Qualifiers: Hypertension type: essential hypertension Qualified Code(s): I10 - Essential (primary) hypertension Category: Medical (5) Alcohol use Current Visit: Yes Status: Acute Code(s): Z72.89 - Other problems related to lifestyle Category: Social Hx (6) Chronic back pain Current Visit: Yes Status: Acute Code(s): M54.9 - Dorsalgia, unspecified; G89.29 - Other chronic pain Qualifiers: Back pain location: low back pain Back pain laterality: unspecified Sciatica presence: unspecified whether sciatica present Qualified Code(s): M54.5 - Low back pain; G89.29 - Other chronic pain Category: Medical
[2019-03-31] MEDS ORDERED: ATORVASTATIN 40 MG TABLET PO SCH (21:00)
[2019-03-31 21:11] VITALS: BP 169/113; TEMP 98.4
== END 2019-03-31 21:05 ==
LOC: MED/SURG 13:43 → ER 13:43 → MED/SURG 17:20
PROVIDERS: ADMIT Family Medicine; ATTEND Family Medicine